=== PATIENT | male | born 1995 | race African-American/Black ===

== ENCOUNTER 2018-07-15 20:20 | Emergency (ER) | payer SELFPAY ==
[2018-07-15] MEDS ORDERED: SODIUM CHLORIDE 0.9% 1000ML 1,000 ML IV ONE (20:48)
[2018-07-15 21:12] LABS: ALBUMIN 4.2 gm/dl (3.4-5.0); ALKALINE PHOSPHATASE 66 IU/L (46-116); ALT 28 IU/L (14-63); AST 28 IU/L (15-37); BILIRUBIN,DIRECT 0.2 mg/dl (0.0-0.2); BILIRUBIN,TOTAL 0.6 mg/dl (0.2-1.0); BLOOD UREA NITROGEN 8 mg/dl (7-18); CALCIUM 9.3 mg/dl (8.5-10.1); CARBON DIOXIDE 25.7 mEq/L (21-32); CHLORIDE 100 mMol/L (98-107); CREATININE 1.25 mg/dl (0.80-1.30); GLUCOSE 108 mg/dl (74-106); MAGNESIUM 1.7 mg/dl (1.8-2.4); POTASSIUM 3.5 mMol/L (3.5-5.1); SODIUM 139 mMol/L (136-145); TOTAL PROTEIN 7.8 gm/dl (6.4-8.2)
[2018-07-15 21:14] LABS: ACETAMINOPHEN < 2 ug/ml (10-30)
[2018-07-15 21:16] LABS: BASOPHILS % (AUTO) 2 % (0-3); EOSINOPHILS % (AUTO) 1 % (0-9); HEMATOCRIT 47 % (39-53); HEMOGLOBIN 16.2 gm/dl (13.5-17.7); LYMPHOCYTES % (AUTO) 35.9 % (10-50); MEAN CORPUSCULAR HGB CONC 34.3 gm/dl (32.0-36.0); MEAN CORPUSCULAR VOLUME 87 fL (80-100); MONOCYTES % (AUTO) 9.2 % (0-12); NEUTROPHILS % (AUTO) 51.9 % (37-80)
[2018-07-15 21:28] LABS: AMPHETAMINES NEGATIVE (NEGATIVE); BARBITUATES NEGATIVE (NEGATIVE); BENZODIAZEPINES NEGATIVE (NEGATIVE); CANNABINOL(THC) POSITIVE (NEGATIVE); COCAINE(COC) NEGATIVE (NEGATIVE); METHADONE NEGATIVE (NEGATIVE); METHAMPHETAMINES NEGATIVE (NEGATIVE); OPIATES(OPI) NEGATIVE (NEGATIVE); OXYCODONE(OXY) NEGATIVE (NEGATIVE); PROPOXYPHENE(PPX) NEGATIVE (NEGATIVE); TRICYCLIC ANTIDEPRESSANTS NEGATIVE (NEGATIVE)
[2018-07-15] MEDS ORDERED: MAGNESIUM OXIDE 400 MG TAB PO SCH (23:30)
[2018-07-16 00:37] VITALS: BP 114/74; PULSE 82; RESP 20; TEMP 98.6; O2SAT 96
== END 2018-07-16 00:01 | DRG 101 ==
LOC: ED 20:20
DX: G40.909 Epilepsy, unspecified, not intractable, without status epilepticus (principal); E83.42 Hypomagnesemia; S50.01XA Contusion of right elbow, initial encounter; W19.XXXA Unspecified fall, initial encounter; S01.81XA Laceration without foreign body of other part of head, initial encounter; S01.512A Laceration without foreign body of oral cavity, initial encounter; R40.2362 Coma scale, best motor response, obeys commands, at arrival to emergency department; R40.2132 Coma scale, eyes open, to sound, at arrival to emergency department; R40.2252 Coma scale, best verbal response, oriented, at arrival to emergency department
CPT/HCPCS: 70450; 73070; 80048; 80076; 80305; 80307; 82962; 83735; 85025; 96365; 99284; 99285